=== PATIENT | male | born 1940 ===

== ENCOUNTER 2016-09-05 13:59 | Observation (INO) | payer MEDICARE ==
[2016-09-05 13:59] VITALS: BMI 33.0
[2016-09-05] MEDS ORDERED: Albuterol 0.083% Inhal Sol (2.5 mg/3 mL) UD IH STA (14:44)
--- NOTE | 2016-09-05 15:04 | RAD ---
PROCEDURE: CHEST RADIOGRAPH, 1 VIEW HISTORY: Shortness of breath COMPARISON: CT thorax from 08/30/2015 and plain radiographs from 01/07/2016 FINDINGS: LUNGS: There is right basilar atelectasis. There is stable appearance of masslike opacity in the left lower lobe. PLEURA: No pneumothorax or pleural fluid seen. CARDIOVASCULAR: The heart is normal in size. Atherosclerotic aortic arch calcifications are present. . OSSEOUS STRUCTURES: No significant abnormalities. VISUALIZED UPPER ABDOMEN: Normal. OTHER FINDINGS: None. IMPRESSION: Stable appearance of masslike opacity in the left lower lobe identified as soft tissue masses on the CT scan from August 2015. No acute findings.
[2016-09-05] MEDS ORDERED: Albuterol-Ipratrop 3 mg / 0.5 (3 ml) UD ONE (15:07)
[2016-09-05 15:22] LABS: BASO % 0.3 % (0.0-2.0); EOS # 0.5 K/uL (0.0-0.7); EOS % 11.2 % (0.0-4.0); HEMATOCRIT 37.7 % (35.0-51.0); LYMPH # 1.8 K/uL (1.0-4.3); MEAN CELL VOLUME 97.8 fL (80.0-94.0); MEAN CORPUSCULAR HEMOGLOBIN 32.2 pg (27.0-31.0); MEAN CORPUSCULAR HGB CONC 32.9 g/dL (33.0-37.0); MEAN PLATELET VOLUME 7.8 fL (7.2-11.7); MONO # 0.3 K/uL (0.0-0.8); MONO % 6.4 % (0.0-10.0); NRBC % 0.1 % (0.0-2.0); RED CELL DISTRIBUTION WIDTH 17.2 % (11.5-14.5); WHITE BLOOD COUNT 4.7 K/uL (4.8-10.8)
[2016-09-05 15:31] LABS: INR 1.1
[2016-09-05 15:32] LABS: CHLORIDE 106 mmol/L (98-107); POTASSIUM 3.8 mmol/L (3.6-5.2); SODIUM 139 mmol/L (132-148)
[2016-09-05 15:34] LABS: AST/SGOT 35 U/L (17-59); BILIRUBIN,TOTAL 0.9 mg/dL (0.2-1.3); CARBON DIOXIDE 25 mmol/L (22-30); GFR AFRICAN-AMERICAN 60
[2016-09-05 15:35] LABS: ALB/GLOB RATIO 1.2 (1.0-2.1); ALKALINE PHOSPHATASE 98 U/L (38-126); ALT/SGPT 27 U/L (21-72); BLOOD UREA NITROGEN 17 mg/dL (9-20); CALCIUM 8.3 mg/dl (8.6-10.4); GLUCOSE,RANDOM 92 mg/dL (75-110); TOTAL PROTEIN 6.5 g/dL (6.3-8.3)
--- NOTE | 2016-09-05 15:48 | C.PDOC ---
History Of Present Illness Patient is a 75 y/o male, whose past medical history includes renal and lung CA (left side) that presents to the ED for evaluation of cough, congestion, fever, and shortness of breath that developed 3 days ago. Patient was evaluated by PMD , Dr. Fajardo, 3 days ago and was diagnosed with bronchitis. Patient states that his fever improved but shortness of breath still persists which prompted ED visit. Patient admits to left sided chest pain. Otherwise, denies any lightheadedness, headache, dizziness, n/v/d, or any other associated symptoms at this time. Time Seen by Provider: 09/05/16 14:17 Chief Complaint (Nursing): Shortness Of Breath History Per: Patient History/Exam Limitations: no limitations Onset/Duration Of Symptoms: Days (4) Current Symptoms Are (Timing): Still Present Quality: "Pain" Associated Symptoms: Fever, Chest Pain. denies: Sweating, Bloody Cough, Heart Racing, Leg/Calf Pain, Ankle/Leg Swelling, Dizziness, Light-headedness, Anxiety , Tingling In Hands Or Face, Musle Spasms In Hands Or Feet Reports Recently: Treated By A Physician Recent travel outside of the [place]: No Additional History Per: Patient Past Medical History Reviewed: Historical Data, Nursing Documentation, Vital Signs Vital Signs: Last Vital Signs Temp 97.5 F L 09/05/16 14:07 Pulse 74 09/05/16 14:07 Resp 20 09/05/16 15:00 BP 145/85 09/05/16 14:07 Pulse Ox 98 09/05/16 17:18 - Medical History PMH: Arthritis (Bilateral knees), Diabetes, HTN, Hypercholesterolemia, Pneumonia , Chronic Kidney Disease Surgical History: Coronary Stent (2008), Endoscopy, Hernia Repair (umbilical) Family History: States: Unknown Family Hx - Social History Hx Tobacco Use: Yes (Former smoker 2-3 cigaretes per day, quit 13 years ago) Hx Alcohol Use: No Hx Substance Use: No - Immunization History Hx Tetanus Toxoid Vaccination: No Hx Influenza Vaccination: No Hx Pneumococcal Vaccination: No Review Of Systems Except As Marked, All Systems Reviewed And Found Negative. Constitutional: Positive for: Fever. Negative for: Sweats ENT: Positive for: Nose Congestion. Negative for: Nose Discharge, Throat Pain Cardiovascular: Positive for: Chest Pain. Negative for: Palpitations, Light Headedness Respiratory: Positive for: Cough, Shortness of Breath. Negative for: Hemoptysis , Sputum, Wheezing Gastrointestinal: Negative for: Nausea, Vomiting, Abdominal Pain, Diarrhea Skin: Negative for: Rash Neurological: Negative for: Weakness, Numbness, Headache, Dizziness Physical Exam - Physical Exam Appears: Non-toxic, No Acute Distress Skin: Normal Color, Warm, Dry Head: Atraumatic, Normacephalic Eye(s): bilateral: Normal Inspection, EOMI Ear(s): Bilateral: Normal Nose: Normal Oral Mucosa: Moist Throat: Normal, No Erythema, No Exudate, No Drooling Neck: Normal ROM, Supple Chest: Symmetrical, No Tenderness Cardiovascular: Rhythm Regular Respiratory: No Accessory Muscle Use, No Rales, Rhonchi (left side), No Wheezing Gastrointestinal/Abdominal: Soft, No Tenderness Extremity: Normal ROM Neurological/Psych: Oriented x3, Normal Speech ED Course And Treatment - Laboratory Results Result Diagrams: 09/05/16 15:16 09/05/16 15:16 ECG: Interpreted By Me, Viewed By Me ECG Rhythm: Sinus Rhythm ECG Interpretation: No Acute Changes Rate From EC (bpm) O2 Sat by Pulse Oximetry: 98 (on RA) Pulse Ox Interpretation: Normal - Other Rad CXR X-Ray: Viewed By Me, Read By Radiologist Interpretation: FINDINGS: LUNGS: There is right basilar atelectasis. There is stable appearance of masslike opacity in the left lower lobe. PLEURA: No pneumothorax or pleural fluid seen. CARDIOVASCULAR: The heart is normal in size. Atherosclerotic aortic arch calcifications are present. . OSSEOUS STRUCTURES: No significant abnormalities. VISUALIZED UPPER ABDOMEN: Normal. OTHER FINDINGS: None. IMPRESSION: Stable appearance of masslike opacity in the left lower lobe identified as soft tissue masses on the CT scan from August 2015. No acute findings. Progress Note: CXR, EKG, labs ordered and reviewed. Patient was treated with Albuterol in the ER. On re-exam, patient is resting comfortably with no wheezing , or retractions. Oxygen saturation remains stable. Patient is alert and oriented x 3. Case discussed with Dr. Aggarwal who agrees with plan and admission. Spoke with Dr. Fajardo on phone who agrees upon admission. Additionally , Dr. Fajardo requested to cancel CTA, and states will evaluate patient tomorrow. Pulse ox: 98% . No respiratory distress. Disposition - Disposition Disposition: HOSPITALIZED Disposition Time: 17:04 Condition: STABLE - Clinical Impression Clinical Impression: Chest pain, SOB (shortness of breath) - PA / TREE TRIMMING LINE TECHNICIAN / Resident Statement MD/DO has reviewed & agrees with the documentation as recorded. - Scribe Statement The provider has reviewed the documentation as recorded by the Scribe Estee Berry All medical record entries made by the Prasadibalexey were at my direction and personally dictated by me. I have reviewed the chart and agree that the record accurately reflects my personal performance of the history, physical exam, medical decision making, and the department course for this patient. I have also personally directed, reviewed, and agree with the discharge instructions and disposition.
[2016-09-05] MEDS ORDERED: Moxifloxacin IV 400mg/250ml NS 400 MG/250 ML BAG IV ONE (16:51)
[2016-09-05] MEDS ORDERED: Moxifloxacin IV 400mg/250ml NS 400 MG/250 ML BAG IVPB ONE (17:12)
[2016-09-05 17:21] LABS: RBC URINE 1 /hpf (0-3); URINE BILIRUBIN NEGATIVE (NEGATIVE); URINE BLOOD NEGATIVE (NEGATIVE); URINE COLOR Yellow (YELLOW); URINE GLUCOSE (UA) NORMAL (Normal); URINE KETONE NEGATIVE (NEGATIVE); URINE LEUKOCYTE ESTERASE NEG Leu/uL (Negative); URINE PROTEIN 2+ mg/dL (NEGATIVE); WBC URINE < 1 /hpf (0-5)
[2016-09-05] MEDS: (Novolin R) Insulin Human Regular 100 units/ml vial SC SCH (22:03)
[2016-09-06] MEDS: guaiFENesin DM 200 mg-20 mg/10 ml UD PO PRN ×2 (01:13→09:38)
[2016-09-06] MEDS: (Novolin R) Insulin Human Regular 100 units/ml vial SC SCH ×4 (07:45→22:14)
[2016-09-06 08:38] LABS: CHLORIDE 101 mmol/L (98-107); POTASSIUM 3.7 mmol/L (3.6-5.2); SODIUM 136 mmol/L (132-148)
[2016-09-06 08:39] LABS: HEMATOCRIT 37.7 % (35.0-51.0); MEAN CELL VOLUME 97.8 fL (80.0-94.0); MEAN CORPUSCULAR HEMOGLOBIN 32.2 pg (27.0-31.0); MEAN PLATELET VOLUME 8.5 fL (7.2-11.7); RED CELL DISTRIBUTION WIDTH 17.2 % (11.5-14.5); WHITE BLOOD COUNT 4.8 K/uL (4.8-10.8)
[2016-09-06 08:41] LABS: ALB/GLOB RATIO 1.2 (1.0-2.1); ALKALINE PHOSPHATASE 90 U/L (38-126); ALT/SGPT 27 U/L (21-72); AST/SGOT 23 U/L (17-59); BILIRUBIN,TOTAL 0.9 mg/dL (0.2-1.3); BLOOD UREA NITROGEN 18 mg/dL (9-20); CARBON DIOXIDE 25 mmol/L (22-30); GFR AFRICAN-AMERICAN > 60; GLUCOSE,RANDOM 112 mg/dL (75-110); TOTAL PROTEIN 6.2 g/dL (6.3-8.3)
[2016-09-06 08:42] LABS: CALCIUM 8.1 mg/dl (8.6-10.4)
--- NOTE | 2016-09-06 09:21 | RAD ---
PROCEDURE: CHEST RADIOGRAPH, 1 VIEW HISTORY: SHORTNESS OF BREATH/CHEST PAIN COMPARISON: 09/05/2016 FINDINGS: LUNGS: Persistent mass like prominent opacity within the left mid to lower lung zone. Venous congestion. PLEURA: As above. CARDIOVASCULAR: Cardiomegaly. Tortuous aorta. OSSEOUS STRUCTURES: Degenerative changes in the spine and shoulders with calcific tendinopathy of the left proximal humerus. VISUALIZED UPPER ABDOMEN: Normal. OTHER FINDINGS: None. IMPRESSION: Persistent large lobulated mass like opacity in the left mid to lower lung zone. Cardiomegaly with tortuous ectatic aorta.
[2016-09-06] MEDS: Pantoprazole 40 mg EC Tab PO SCH (09:37)
[2016-09-06] MEDS: Enoxaparin 30 mg Syringe SC SCH ×2 (09:38→22:13)
[2016-09-06 15:36] VITALS: RESP 20
[2016-09-06] MEDS: Moxifloxacin IV 400mg/250ml NS 400 MG/250 ML BAG IVPB SCH (16:19)
--- NOTE | 2016-09-06 21:44 | CP.PCM.CON ---
History of Present Illness - History of Present Illness History of Present Illness: Covering Dr. 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 The patient reports to sudden shortness of breath and chest pain. He was seen by his PMD who told him to come to the hospital. He notes to feeling better and reports the shortness of breath and chest pain and resolving. He denies fever and chills. He notes he is due for a repeat CT scan at [facility] in 2 weeks and has an oncology f/u following his imaging. Past medical history: HTN, DM, HL, renal cell carcinoma Past surgical history: nephrectomy Family history: Denies hematologic and oncologic problems Social history: Former tobacco abuse, denies alcohol and illicit drug use. Allergies: Penicillin Review of systems: All remaining review of systems including HEENT, cardiovascular, respiratory, gastrointestinal, genitourinary, musculoskeletal, dermatologic, neurologic, and psychiatric are negative unless mentioned in the HPI. Past Patient History - Past Medical History & Family History Past Medical History?: Yes - Past Social History Smoking Status: Former Smoker - CARDIAC Hx Hypercholesterolemia: Yes Hx Hypertension: Yes - PULMONARY Hx Pneumonia: Yes - NEUROLOGICAL Hx Neurological Disorder: No - HEENT Hx HEENT Problems: No - RENAL Hx Chronic Kidney Disease: Yes - ENDOCRINE/METABOLIC Hx Diabetes Mellitus Type 1: Yes Hx Diabetes Mellitus Type 2: Yes - HEMATOLOGICAL/ONCOLOGICAL Hx Blood Disorders: Yes Hx Cancer: Yes (LEFT KIDNEY CANCER, LYMPHNODE INVOLVED) - INTEGUMENTARY Hx Dermatological Problems: No - MUSCULOSKELETAL/RHEUMATOLOGICAL Hx Arthritis: Yes (Bilateral knees) - GASTROINTESTINAL Hx Gastrointestinal Disorders: Yes (VOMITING) - GENITOURINARY/GYNECOLOGICAL Hx Genitourinary Disorders: No Other/Comment: LEFT NEPHRECTOMY/CA - PSYCHIATRIC Hx Substance Use: No - SURGICAL HISTORY Hx Coronary Stent: Yes (2007) - ANESTHESIA Hx Anesthesia: Yes Hx Anesthesia Reactions: No Hx Malignant Hyperthermia: No Has any member of the family had a problem w/ anesthesia?: No Meds Allergies/Adverse Reactions: Allergies Allergy/AdvReac Type Severity Reaction Status Date / Time Penicillins Allergy Severe RASH Verified 09/05/16 14:09 - Medications Medications: Current Medications Amlodipine Besylate (Norvasc) 10 mg PO DAILY [facility] Last Admin: 09/06/16 09:38 Dose: 10 mg Enoxaparin Sodium (Lovenox) 30 mg SC Q12 [facility] Last Admin: 09/06/16 09:38 Dose: 30 mg Guaifenesin/Dextromethorphan (Robitussin Dm) 10 ml PO Q4H PRN PRN Reason: Cough and congestion Last Admin: 09/06/16 09:38 Dose: 10 ml Hydrochlorothiazide (Hydrodiuril) 25 mg PO DAILY [facility] Last Admin: 09/06/16 09:38 Dose: 25 mg Moxifloxacin HCl (Avelox Iv 400mg/250ml Ns) 400 mg in 250 mls @ 167 mls/hr IVPB Q24H [facility] Last Admin: 09/06/16 16:19 Dose: 167 mls/hr Insulin Human Regular (Novolin R) 0 unit SC ACHS [facility] PRN Reason: Protocol Last Admin: 09/06/16 16:18 Dose: Not Given Losartan Potassium (Cozaar) 100 mg PO DAILY [facility] Last Admin: 09/06/16 09:37 Dose: 100 mg Metformin HCl (Glucophage) 500 mg PO DAILY [facility] Last Admin: 09/06/16 09:38 Dose: 500 mg Ondansetron HCl (Zofran Inj) 4 mg IVP Q6H PRN PRN Reason: Nausea/Vomiting Pantoprazole Sodium (Protonix Ec Tab) 40 mg PO DAILY [facility] Last Admin: 09/06/16 09:37 Dose: 40 mg Rosuvastatin Calcium (Crestor) 20 mg PO HS [facility] Last Admin: 09/05/16 22:05 Dose: 20 mg Physical Exam - Head Exam Head Exam: ATRAUMATIC - Eye Exam Eye Exam: Normal appearance - ENT Exam ENT Exam: Mucous Membranes Dry - Respiratory Exam Respiratory Exam: NORMAL BREATHING PATTERN - Cardiovascular Exam Cardiovascular Exam: +S1, +S2 - GI/Abdominal Exam GI & Abdominal Exam: Normal Bowel Sounds - Extremities Exam Extremities exam: Positive for: normal inspection - Neurological Exam Neurological exam: Oriented x3 - Psychiatric Exam Psychiatric exam: Normal Affect, Normal Mood - Skin Skin Exam: Warm Results - Vital Signs Recent Vital Signs: Last Vital Signs Temp 97.7 F 09/06/16 15:35 Pulse 69 09/06/16 15:35 Resp 20 09/06/16 15:35 BP 121/78 09/06/16 15:35 Pulse Ox 96 09/06/16 15:35 - Labs Result Diagrams: 09/06/16 07:27 09/06/16 07:27 Labs: Laboratory Results - last 24 hr 09/06/16 09/06/16 09/06/16 06:39 07:27 07:27 WBC 4.8 RBC 3.85 L Hgb 12.4 Hct 37.7 MCV 97.8 H MCH 32.2 H MCHC 33.0 RDW 17.2 H Plt Count 176 MPV 8.5 Sodium 136 Potassium 3.7 Chloride 101 Carbon Dioxide 25 Anion Gap 14 BUN 18 Creatinine 1.1 Est GFR ( Amer) > 60 Est GFR (Non-Af Amer) > 60 POC Glucose (mg/dL) 110 Random Glucose 112 H Calcium 8.1 L Total Bilirubin 0.9 AST 23 ALT 27 Alkaline Phosphatase 90 Total Protein 6.2 L Albumin 3.4 L Globulin 2.8 Albumin/Globulin Ratio 1.2 09/06/16 09/06/16 09/06/16 12:19 16:17 21:19 WBC RBC Hgb Hct MCV MCH MCHC RDW Plt Count MPV Sodium Potassium Chloride Carbon Dioxide Anion Gap BUN Creatinine Est GFR ( Amer) Est GFR (Non-Af Amer) POC Glucose (mg/dL) 86 132 H 160 H Random Glucose Calcium Total Bilirubin AST ALT Alkaline Phosphatase Total Protein Albumin Globulin Albumin/Globulin Ratio Assessment & Plan (1) Renal cell carcinoma Assessment and Plan: lung metastasis by biopsy in 2015 on sunitinib under the care of Dr. Strickland at [facility] outpatient imaging and f/u with primary oncologist. Status: Acute (2) Anemia Assessment and Plan: mild likely related to chemotherapy Thank you for this interesting consult. Status: Acute
--- NOTE | 2016-09-06 21:53 | CP.PCM.HP ---
History of Present Illness - History of Present Illness History of Present Illness: 75 years old male with Past Medical History significant for HTN, Type II DM, Hyperlipidemia, Renal Cancer, Nephrectomy and Lung mestastasis. Patient was in his usual state of health until he complained of sudden onset of chest pain and shortness of breath. Patient denies headache, wheezing, palpitations, nausea, vomiting, abdominal pain, diarrhea and urinary symptoms. Present on Admission - Present on Admission Any Indicators Present on Admission: No Review of Systems - Cardiovascular Cardiovascular: Chest Pain - Respiratory Respiratory: Excessive Mucous Production Past Patient History - Past Medical History & Family History Past Medical History?: Yes - Past Social History Smoking Status: Former Smoker - CARDIAC Hx Hypercholesterolemia: Yes Hx Hypertension: Yes - PULMONARY Hx Pneumonia: Yes - NEUROLOGICAL Hx Neurological Disorder: No - HEENT Hx HEENT Problems: No - RENAL Hx Chronic Kidney Disease: Yes - ENDOCRINE/METABOLIC Hx Diabetes Mellitus Type 1: Yes Hx Diabetes Mellitus Type 2: Yes - HEMATOLOGICAL/ONCOLOGICAL Hx Blood Disorders: Yes Hx Cancer: Yes (LEFT KIDNEY CANCER, LYMPHNODE INVOLVED) - INTEGUMENTARY Hx Dermatological Problems: No - MUSCULOSKELETAL/RHEUMATOLOGICAL Hx Arthritis: Yes (Bilateral knees) - GASTROINTESTINAL Hx Gastrointestinal Disorders: Yes (VOMITING) - GENITOURINARY/GYNECOLOGICAL Hx Genitourinary Disorders: No Other/Comment: LEFT NEPHRECTOMY/CA - PSYCHIATRIC Hx Substance Use: No - SURGICAL HISTORY Hx Coronary Stent: Yes (2007) - ANESTHESIA Hx Anesthesia: Yes Hx Anesthesia Reactions: No Hx Malignant Hyperthermia: No Has any member of the family had a problem w/ anesthesia?: No Meds Allergies/Adverse Reactions: Allergies Allergy/AdvReac Type Severity Reaction Status Date / Time Penicillins Allergy Severe RASH Verified 09/05/16 14:09 Physical Exam - Constitutional Appears: Well, Non-toxic, No Acute Distress - Head Exam Head Exam: ATRAUMATIC, NORMAL INSPECTION, NORMOCEPHALIC - Eye Exam Eye Exam: EOMI, Normal appearance, PERRL - ENT Exam ENT Exam: Mucous Membranes Moist, Normal Exam - Neck Exam Neck exam: Positive for: Full Rom, Normal Inspection - Respiratory Exam Respiratory Exam: Clear to Auscultation Bilateral, NORMAL BREATHING PATTERN - Cardiovascular Exam Cardiovascular Exam: REGULAR RHYTHM, +S1, +S2 - GI/Abdominal Exam GI & Abdominal Exam: Normal Bowel Sounds, Soft - Extremities Exam Extremities exam: Positive for: full ROM, normal inspection - Back Exam Back exam: FULL ROM, NORMAL INSPECTION - Neurological Exam Neurological exam: Alert, CN II-XII Intact, Normal Gait, Oriented x3, Reflexes Normal - Psychiatric Exam Psychiatric exam: Normal Affect, Normal Mood - Skin Skin Exam: Dry, Intact, Normal Color Results - Vital Signs Recent Vital Signs: Last Vital Signs Temp 97.7 F 09/06/16 15:35 Pulse 69 09/06/16 15:35 Resp 20 09/06/16 15:35 BP 121/78 09/06/16 15:35 Pulse Ox 96 09/06/16 15:35 - Labs Result Diagrams: 09/06/16 07:27 09/06/16 07:27 Labs: Laboratory Results - last 24 hr 09/06/16 09/06/16 09/06/16 06:39 07:27 07:27 WBC 4.8 RBC 3.85 L Hgb 12.4 Hct 37.7 MCV 97.8 H MCH 32.2 H MCHC 33.0 RDW 17.2 H Plt Count 176 MPV 8.5 Sodium 136 Potassium 3.7 Chloride 101 Carbon Dioxide 25 Anion Gap 14 BUN 18 Creatinine 1.1 Est GFR ( Amer) > 60 Est GFR (Non-Af Amer) > 60 POC Glucose (mg/dL) 110 Random Glucose 112 H Calcium 8.1 L Total Bilirubin 0.9 AST 23 ALT 27 Alkaline Phosphatase 90 Total Protein 6.2 L Albumin 3.4 L Globulin 2.8 Albumin/Globulin Ratio 1.2 09/06/16 09/06/16 09/06/16 12:19 16:17 21:19 WBC RBC Hgb Hct MCV MCH MCHC RDW Plt Count MPV Sodium Potassium Chloride Carbon Dioxide Anion Gap BUN Creatinine Est GFR ( Amer) Est GFR (Non-Af Amer) POC Glucose (mg/dL) 86 132 H 160 H Random Glucose Calcium Total Bilirubin AST ALT Alkaline Phosphatase Total Protein Albumin Globulin Albumin/Globulin Ratio Assessment & Plan (1) Chest pain Assessment and Plan: Chest Pain. Expectoration. H/O Lung metastasis. H/O Renal Cancer. H/O Nephrectomy. Immunocompromised State. Abnormal CXR. R/O Pneumonia. Blood Cultures. Repeat CXR. Levaquin. 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 Status: Acute (3) Diabetes Assessment and Plan: Continue same treatment. Accucheck with Insulin coverage. Status: Acute (4) Hypertension Assessment and Plan: Continue same treatment. Status: Acute (5) DVT prophylaxis Assessment and Plan: Lovenox 30 mg subc bid. Status: Acute
[2016-09-07] MEDS: (Novolin R) Insulin Human Regular 100 units/ml vial SC SCH ×3 (07:52→17:07)
--- NOTE | 2016-09-07 07:55 | CARD ---
APPROVED REPORT EKG Measurement Heart [id number] NH 210P1 [id number] <Conclusion> Sinus rhythm with 1st degree AV block Nonspecific ST and T wave abnormality Abnormal ECG
[2016-09-07] MEDS: Pantoprazole 40 mg EC Tab PO SCH (09:42)
[2016-09-07] MEDS: Enoxaparin 30 mg Syringe SC SCH (09:44)
[2016-09-07] MEDS: guaiFENesin DM 200 mg-20 mg/10 ml UD PO PRN (11:29)
[2016-09-07 16:00] VITALS: BP 114/76; PULSE 76; TEMP 98.1; O2SAT 95
[2016-09-07] MEDS: Moxifloxacin IV 400mg/250ml NS 400 MG/250 ML BAG IVPB SCH (16:56)
--- NOTE | 2016-09-07 19:27 | CP.PCM.DIS ---
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 Status: Acute (2) Chest pain Status: Resolved Priority: High (3) Diabetes Status: Chronic (4) Hypertension Status: Chronic (5) DVT prophylaxis Status: Suspected (6) Pneumonia Status: Acute Priority: High Comment: Levaquin 500 mg PO x 7 days (7) Immunocompromised state Status: Chronic Priority: High Hospital Course - Lab Results Lab Results: Micro Results 09/05/16 17:09 Blood-Venous Blood Culture - Preliminary NO GROWTH AFTER 24 HOURS Most Recent Lab Values WBC 4.8 K/uL (4.8-10.8) 09/06/16 07:27 RBC 3.85 Mil/uL (4.40-5.90) L 09/06/16 07:27 Hgb 12.4 g/dL (12.0-18.0) 09/06/16 07:27 Hct 37.7 % (35.0-51.0) 09/06/16 07:27 MCV 97.8 fL (80.0-94.0) H 09/06/16 07:27 MCH 32.2 pg (27.0-31.0) H 09/06/16 07:27 MCHC 33.0 g/dL (33.0-37.0) 09/06/16 07:27 RDW 17.2 % (11.5-14.5) H 09/06/16 07:27 Plt Count 176 K/uL (130-400) 09/06/16 07:27 MPV 8.5 fL (7.2-11.7) 09/06/16 07:27 Neut % (Auto) 43.1 % (50.0-75.0) L 09/05/16 15:16 Lymph % (Auto) 39.0 % (20.0-40.0) 09/05/16 15:16 Trinity % (Auto) 6.4 % (0.0-10.0) 09/05/16 15:16 Eos % (Auto) 11.2 % (0.0-4.0) H 09/05/16 15:16 Baso % (Auto) 0.3 % (0.0-2.0) 09/05/16 15:16 Neut # 2.0 K/uL (1.8-7.0) 09/05/16 15:16 Lymph # 1.8 K/uL (1.0-4.3) 09/05/16 15:16 Trinity # 0.3 K/uL (0.0-0.8) 09/05/16 15:16 Eos # 0.5 K/uL (0.0-0.7) 09/05/16 15:16 Baso # 0.0 K/uL (0.0-0.2) 09/05/16 15:16 PT 12.4 SECONDS (9.7-12.2) H 09/05/16 15:16 INR 1.1 09/05/16 15:16 APTT 29 SECONDS (21-34) 09/05/16 15:16 Sodium 136 mmol/L (132-148) 09/06/16 07:27 Potassium 3.7 mmol/L (3.6-5.2) 09/06/16 07:27 Chloride 101 mmol/L (98-107) 09/06/16 07:27 Carbon Dioxide 25 mmol/L (22-30) 09/06/16 07:27 Anion Gap 14 (10-20) 09/06/16 07:27 BUN 18 mg/dL (9-20) 09/06/16 07:27 Creatinine 1.1 MG/DL (0.8-1.5) 09/06/16 07:27 Est GFR ( Amer) > 60 09/06/16 07:27 Est GFR (Non-Af Amer) > 60 09/06/16 07:27 POC Glucose (mg/dL) 144 mg/dL (65-110) H 09/07/16 16:41 Random Glucose 112 mg/dL (75-110) H 09/06/16 07:27 Calcium 8.1 mg/dl (8.6-10.4) L 09/06/16 07:27 Total Bilirubin 0.9 mg/dL (0.2-1.3) 09/06/16 07:27 AST 23 U/L (17-59) 09/06/16 07:27 ALT 27 U/L (21-72) 09/06/16 07:27 Alkaline Phosphatase 90 U/L (38-126) 09/06/16 07:27 Total Creatine Kinase 90 U/L (55-170) 09/05/16 15:16 CK-MB (Mass) 2.26 ng/mL (0.0-3.38) 09/05/16 15:16 Troponin I < 0.0120 ng/mL (0.00-0.120) 09/05/16 15:16 NT-Pro-B Natriuret Pep 90.0 pg/mL (0-900) 09/05/16 15:16 Total Protein 6.2 g/dL (6.3-8.3) L 09/06/16 07:27 Albumin 3.4 g/dL (3.5-5.0) L 09/06/16 07:27 Globulin 2.8 gm/dL (2.2-3.9) 09/06/16 07:27 Albumin/Globulin Ratio 1.2 (1.0-2.1) 09/06/16 07:27 Urine Color Yellow (YELLOW) 09/05/16 17:01 Urine Clarity Clear (Clear) 09/05/16 17:01 Urine pH 6.0 (5.0-8.0) 09/05/16 17:01 Ur Specific Ledbetter 1.023 (1.003-1.030) 09/05/16 17:01 Urine Protein 2+ mg/dL (NEGATIVE) H 09/05/16 17:01 Urine Glucose (UA) Normal mg/dL (Normal) 09/05/16 17:01 Urine Ketones Negative mg/dL (NEGATIVE) 09/05/16 17:01 Urine Blood Negative (NEGATIVE) 09/05/16 17:01 Urine Nitrate Negative (NEGATIVE) 09/05/16 17:01 Urine Bilirubin Negative (NEGATIVE) 09/05/16 17:01 Urine Urobilinogen 4.0 mg/dL (0.2-1.0) 09/05/16 17:01 Ur Leukocyte Esterase Neg Ryan/uL (Negative) 09/05/16 17:01 Urine WBC (Auto) < 1 /hpf (0-5) 09/05/16 17:01 Urine RBC (Auto) 1 /hpf (0-3) 09/05/16 17:01 - Hospital Course Hospital Course: 75 years old male with PMHx significant for Renal Carcinoma, Nephrectomy, Lung metastasis, Immunocompromised state, Type II DM, HTN and Hyperlipidemia. Patient admitted for Chest pain and shortness of breath. Hematology consult ordered. Patient responded very well to Avelox IV. Patient's condition improved and he was discharged home on Levaquin PO. Discharge Exam - Head Exam Head Exam: ATRAUMATIC - Eye Exam Eye Exam: EOMI, Normal appearance, PERRL - Respiratory Exam Respiratory Exam: Clear to PA & Lateral, NORMAL BREATHING PATTERN - Cardiovascular Exam Cardiovascular Exam: REGULAR RHYTHM, +S1, +S2 - GI/Abdominal Exam GI & Abdominal Exam: Normal Bowel Sounds, Soft - Extremities Exam Extremities exam: full ROM, normal inspection - Back Exam Back exam: FULL ROM - Neurological Exam Neurological exam: Alert, CN II-XII Intact, Oriented x3, Reflexes Normal - Psychiatric Exam Psychiatric exam: Normal Affect, Normal Mood - Skin Skin Exam: Intact Discharge Plan - Follow Up Plan Condition: STABLE Disposition: HOME/ ROUTINE Patient education suggested?: No
[2016-09-07] MEDS ORDERED: INSULIN DEGLUDEC 30 UNIT SUBCUT SCH (22:00)
[2016-09-08] MEDS ORDERED: Pneumococcal 23-Valent Vaccine IM ONE (10:00)
[2016-09-08] MEDS ORDERED: VALSARTAN PO SCH (10:00)
[2016-09-08] MEDS ORDERED: Pantoprazole 40 mg EC Tab PO SCH (10:00)
[2016-09-08] MEDS ORDERED: SUNITINIB PO SCH (10:00)
[2016-09-08] MEDS ORDERED: HCTHIAZID PO SCH (10:00)
[2016-09-08] MEDS ORDERED: AMLODIPINE PO SCH (10:00)
== END 2016-09-07 20:40 | disposition home or self-care (01) ==
LOC: C.ER 13:59 → C.9E 16:51 → C.6T 20:06
PROVIDERS: ADMIT Internal Medicine; ATTEND Internal Medicine
DX: J18.9 Pneumonia, unspecified organism (principal); R06.02 Shortness of breath; C78.02 Secondary malignant neoplasm of left lung; E10.22 Type 1 diabetes mellitus with diabetic chronic kidney disease; E78.5 Hyperlipidemia, unspecified; I12.9 Hypertensive chronic kidney disease with stage 1 through stage 4 chronic kidney disease, or unspecified chronic kidney disease; N18.9 Chronic kidney disease, unspecified; M17.0 Bilateral primary osteoarthritis of knee; D64.81 Anemia due to antineoplastic chemotherapy; T45.1X5A Adverse effect of antineoplastic and immunosuppressive drugs, initial encounter; Z85.528 Personal history of other malignant neoplasm of kidney; Z79.4 Long term (current) use of insulin; Z90.5 Acquired absence of kidney; Z95.5 Presence of coronary angioplasty implant and graft; Z87.891 Personal history of nicotine dependence
CPT/HCPCS: 36415; 71010; 80053; 81001; 82550; 82553; 82948; 83880; 84484; 85025; 85027; 85610; 85730; 87040; 93005; 96360; 97110; 97116; 97162; 99285; G0378; G8978; G8979; J1650; J2280

== ENCOUNTER 2016-11-02 07:07 | Day surgery (SDC) | payer MEDICARE ==
[2016-11-02 07:47] VITALS: BMI 31.6
--- NOTE | 2016-11-02 10:02 | CP.SDSHP ---
Same Day Surgery H & P - History Proposed Procedure: EGD/ COLONSCOPY Pre-Op Diagnosis: SEE NOTES - Previous Medical/Surgical History Cardiac: Hypertension Endocrine/Metabolic: Diabetes, Other Misc: Other Pain: 4.Moderate Pain - Allergies Allergies: Allergies Penicillins Allergy (Severe, Verified 09/05/16 14:09) RASH - Physical Exam General Appearance: N Vital Signs: Vital Signs 11/02/16 08:02 Temperature 98.6 F Pulse Rate 80 Respiratory 16 Rate Blood Pressure 130/66 O2 Sat by Pulse 98 Oximetry Mental Status: Alert & Oriented x3 Neuro: WNL Heart: Other Lungs: WNL GI: WNL - {Optional Preform as Required} Breast: WNL Abdomen: Other Rectal: Other Integument: WNL : Other Ortho: WNL ENT: WNL - Impression Pt. Evaluated Today:Candidate for Anesthesia & Procedure: Yes - Date & Time Time: 10:02 Short Stay Discharge - Short Stay Discharge Admitting Diagnosis/Reason for Visit: DYSPEPSIA / GI BLEEDING Disposition: HOME/ ROUTINE
[2016-11-02] MEDS ORDERED: Etomidate 20 mg/10ml Inj IV ONE (10:04)
[2016-11-02] MEDS ORDERED: Propofol 10 mg/ml Inj (20 ML) ONE (10:04)
[2016-11-02] MEDS ORDERED: Belladonna-Phenobarbital PO ONE (10:45)
[2016-11-02 11:03] VITALS: TEMP 97.5
[2016-11-02 11:14] VITALS: O2SAT 96
[2016-11-02 11:32] VITALS: PULSE 70; RESP 22
[2016-11-02 12:24] VITALS: BP 130/70
== END 2016-11-02 12:15 | disposition home or self-care (01) ==
LOC: C.ENDO 07:07
PROVIDERS: ATTEND Specialist
DX: K31.7 Polyp of stomach and duodenum (principal); K30 Functional dyspepsia; K44.9 Diaphragmatic hernia without obstruction or gangrene; K64.8 Other hemorrhoids; K57.90 Diverticulosis of intestine, part unspecified, without perforation or abscess without bleeding
CPT/HCPCS: 43270; 45380; 82948; 88305; 88342; J2001; J2704; J2930

== ENCOUNTER 2017-03-08 14:54 | Observation (INO) | payer MEDICARE ==
[2017-03-08 14:54] VITALS: BMI 31.6
--- NOTE | 2017-03-08 15:36 | C.PDOC ---
History Of Present Illness 76 y/o male with history of 2 stents placed presents to ED with complaints of left sided chest pain for 1 week with associated sob and dizziness. Patient is speaking in full sentences and describes pain as "pressure". Patient denies fever, chills, cough, nausea, vomiting or any other complaints at this time. Time Seen by Provider: 03/08/17 15:18 Chief Complaint (Nursing): Chest Pain History Per: Patient History/Exam Limitations: no limitations Onset/Duration Of Symptoms: Days Current Symptoms Are (Timing): Still Present Quality: Pressure Past Medical History Reviewed: Historical Data, Nursing Documentation, Vital Signs Vital Signs: Last Vital Signs Temp 98.3 F 03/08/17 15:08 Pulse 68 03/08/17 16:50 Resp 18 03/08/17 16:50 BP 114/54 L 03/08/17 16:50 Pulse Ox 96 03/08/17 18:46 - Medical History PMH: Anemia, Anxiety, Arthritis (Bilateral knees), Depression, Diabetes, HTN, Hypercholesterolemia, Pneumonia, Chronic Kidney Disease Surgical History: Coronary Stent (2007), Endoscopy, Hernia Repair (umbilical) Family History: States: No Known Family Hx - Social History Hx Tobacco Use: Yes (Former smoker 2-3 cigaretes per day, quit 13 years ago) Hx Alcohol Use: No Hx Substance Use: No - Immunization History Hx Tetanus Toxoid Vaccination: No Hx Influenza Vaccination: No Hx Pneumococcal Vaccination: No Review Of Systems Except As Marked, All Systems Reviewed And Found Negative. Cardiovascular: Positive for: Chest Pain Respiratory: Positive for: Shortness of Breath Neurological: Positive for: Dizziness Physical Exam - Physical Exam Appears: Non-toxic, No Acute Distress Skin: Normal Color, Warm, Dry, No Rash Head: Atraumatic, Normacephalic Eye(s): bilateral: Normal Inspection Oral Mucosa: Moist Throat: Normal, No Erythema, No Exudate, No Drooling Neck: Supple Chest: Symmetrical Cardiovascular: Rhythm Regular Respiratory: Normal Breath Sounds, No Accessory Muscle Use, No Rales, No Rhonchi , No Wheezing Gastrointestinal/Abdominal: Soft, No Tenderness, No Guarding, No Rebound Extremity: Normal ROM, Capillary Refill (<2 seconds) Extremity: Bilateral: No Pedal Edema Neurological/Psych: Oriented x3, Normal Speech (Speaking in full sentences) Gait: Steady ED Course And Treatment - Laboratory Results Result Diagrams: 03/08/17 15:40 03/08/17 15:40 ECG: Interpreted By Me, Viewed By Me ECG Rhythm: Sinus Rhythm Interpretation Of ECst degree AV block, Normal interval. Normal access. No ST/T/ wave changes Rate From EC O2 Sat by Pulse Oximetry: 96 Medical Decision Making Medical Decision Making: chest pain patient resting comfortably. discussed with medical refrigeration supervisor and will admit to telemetry consult for Dr. Batista. Disposition Discussed With : Otoniel Hyde Doctor Will See Patient In The: Hospital Counseled Patient/Family Regarding: Studies Performed, Diagnosis - Disposition Disposition: HOSPITALIZED Disposition Time: 17:07 Condition: FAIR - Clinical Impression Clinical Impression: Chest pain - Scribe Statement The provider has reviewed the documentation as recorded by the Scribalexey Kowalski All medical record entries made by the Prasadibalexey were at my direction and personally dictated by me. I have reviewed the chart and agree that the record accurately reflects my personal performance of the history, physical exam, medical decision making, and the department course for this patient. I have also personally directed, reviewed, and agree with the discharge instructions and disposition.
[2017-03-08 15:44] LABS: BASO % 0.6 % (0.0-2.0); EOS # 0.9 K/uL (0.0-0.7); EOS % 16.1 % (0.0-4.0); HEMATOCRIT 33.4 % (35.0-51.0); LYMPH # 1.4 K/uL (1.0-4.3); LYMPH % 26.7 % (20.0-40.0); MEAN CELL VOLUME 99.4 fL (80.0-94.0); MEAN CORPUSCULAR HEMOGLOBIN 33.5 pg (27.0-31.0); MEAN CORPUSCULAR HGB CONC 33.7 g/dL (33.0-37.0); MEAN PLATELET VOLUME 7.5 fL (7.2-11.7); MONO # 0.4 K/uL (0.0-0.8); MONO % 8.1 % (0.0-10.0); NRBC % 0.1 % (0.0-2.0); RED CELL DISTRIBUTION WIDTH 17.2 % (11.5-14.5); WHITE BLOOD COUNT 5.4 K/uL (4.8-10.8)
[2017-03-08 15:56] LABS: ALB/GLOB RATIO 1.4 (1.0-2.1); ALKALINE PHOSPHATASE 80 U/L (38-126); ALT/SGPT 28 U/L (21-72); AST/SGOT 19 U/L (17-59); BILIRUBIN,TOTAL 0.7 mg/dL (0.2-1.3); BLOOD UREA NITROGEN 21 mg/dL (9-20); CALCIUM 8.5 mg/dl (8.6-10.4); CARBON DIOXIDE 24 mmol/L (22-30); CHLORIDE 102 mmol/L (98-107); GFR AFRICAN-AMERICAN > 60; GLUCOSE,RANDOM 159 mg/dL (75-110); POTASSIUM 4.3 mmol/L (3.6-5.2); SODIUM 132 mmol/L (132-148); TOTAL PROTEIN 6.2 g/dL (6.3-8.3)
--- NOTE | 2017-03-08 16:05 | RAD ---
HISTORY: chest pain COMPARISON: 05/09/2016 chest x-ray. CT chest without contrast 08/30/2015 TECHNIQUE: Chest PA and lateral FINDINGS: LUNGS: The left mid lung zone opacity consistent with lobulated masses is renoted. Chest x-ray appearance similar. T chest shows contiguous left rib destruction contiguous left chest wall involvement - findings not appreciated on this less sensitive exam PLEURA: No significant pleural effusion identified. No pneumothorax apparent. CARDIOVASCULAR: Cardiomegaly. Tortuous partly calcified thoracic aorta-similar OSSEOUS STRUCTURES: Thoracic spondylosis left anterior rib destruction -reported on prior CT chest VISUALIZED UPPER ABDOMEN: Normal. OTHER FINDINGS: None. IMPRESSION: Left mid lung zone mass-similar appearing the prior chest x-ray the please note the prior CT chest without contrast study 08/30/2015 No interval chest x-ray changes suggested
[2017-03-08] MEDS ORDERED: Iodixanol 320 MG/ML 100 ML BOTTLE IV ONE (22:33)
[2017-03-08] MEDS: (Novolin R) Insulin Human Regular 100 units/ml vial SC SCH (23:17)
--- NOTE | 2017-03-08 23:47 | CT ---
EXAM: CT Angiography Chest With Intravenous Contrast CLINICAL HISTORY: 76 years old, male; Pain; Chest pain; Type not specified; Additional info: Chest pain, SOB, lung mass TECHNIQUE: Axial computed tomographic angiography images of the chest with intravenous contrast using pulmonary embolism protocol. All CT scans at this facility use one or more dose reduction techniques, viz.: automated exposure control; ma/kV adjustment per patient size (including targeted exams where dose is matched to indication; i.e. head); or iterative reconstruction technique. MIP reconstructed images were created and reviewed. Coronal and sagittal reformatted images were created and reviewed. CONTRAST: 100 mL of VISIPAQUE 320 administered intravenously. COMPARISON: CT - CHEST W/O CONTRAST 2015-08-30 09:39 FINDINGS: Pulmonary arteries: Unremarkable. No pulmonary embolism. Aorta: No acute findings. No thoracic aortic aneurysm. Lungs: The known left lung mass with invasion of the left anterior chest wall and destruction of the left anterior fifth rib is overall little changed in size as compared with 08/30/2015. For reference, this currently measures 8.5 x 5.2 CM on series 3, image 63. In a similar location on the prior study, this measured 8.4 x 5.2 CM. Numerous metastatic lung nodules most notably near bilateral lung bases overall appear increased in size and number as compared with 08/30/2015. This for reference, one of these at the left base measures 15 mm in greatest dimension on series 3, image 91. Pleural space: The lungs are free of significant consolidation, pleural effusion or pneumothorax. Heart: Unremarkable. No cardiomegaly. No significant pericardial effusion. No evidence of RV dysfunction. Thyroid: The thyroid is normal in size and position. Bones/joints: There are moderate degenerative changes present. There is mild diffuse osteopenia. Soft tissues: See above. Lymph nodes: There is left hilar adenopathy. This appears increased as compared with 08/30/2015. There is no axillary adenopathy. No mediastinal adenopathy. Kidneys and ureters: The left kidney is not identified within the scan. Upper abdomen: Scans through the upper abdomen demonstrate no definite acute abnormalities. IMPRESSION: 1. There is left hilar adenopathy. This appears increased as compared with 08/30/2015. 2. The known left lung mass with invasion of the left anterior chest wall and destruction of the left anterior fifth rib is overall little changed in size as compared with 08/30/2015. For reference, this currently measures 8.5 x 5.2 CM on series 3, image 63. In a similar location on the prior study, this measured 8.4 x 5.2 CM. 3. Numerous metastatic lung nodules most notably near bilateral lung bases overall appear increased in size and number as compared with 08/30/2015. This for reference, one of these at the left base measures 15 mm in greatest dimension on series 3, image 91. 4. Additional incidental and/or chronic findings as described.
[2017-03-09 08:23] LABS: BASO % 0.5 % (0.0-2.0); EOS % 17.6 % (0.0-4.0); HEMATOCRIT 34.7 % (35.0-51.0); LYMPH # 1.5 K/uL (1.0-4.3); LYMPH % 27.4 % (20.0-40.0); MEAN CELL VOLUME 99.9 fL (80.0-94.0); MEAN CORPUSCULAR HEMOGLOBIN 34.5 pg (27.0-31.0); MEAN CORPUSCULAR HGB CONC 34.5 g/dL (33.0-37.0); MEAN PLATELET VOLUME 8.2 fL (7.2-11.7); MONO # 0.5 K/uL (0.0-0.8); MONO % 8.1 % (0.0-10.0); NRBC % 0.1 % (0.0-2.0); RED CELL DISTRIBUTION WIDTH 16.9 % (11.5-14.5); WHITE BLOOD COUNT 5.6 K/uL (4.8-10.8)
[2017-03-09] MEDS ORDERED: Aminophylline 25 mg/ml Inj ONE (08:32)
[2017-03-09] MEDS: (Novolin R) Insulin Human Regular 100 units/ml vial SC SCH ×3 (08:45→17:23)
[2017-03-09 08:55] LABS: ALB/GLOB RATIO 1.5 (1.0-2.1); ALKALINE PHOSPHATASE 88 U/L (38-126); ALT/SGPT 25 U/L (21-72); AST/SGOT 24 U/L (17-59); BILIRUBIN,TOTAL 0.7 mg/dL (0.2-1.3); BLOOD UREA NITROGEN 22 mg/dL (9-20); CALCIUM 8.8 mg/dl (8.6-10.4); CARBON DIOXIDE 29 mmol/L (22-30); CHLORIDE 99 mmol/L (98-107); CHOLESTEROL 159 mg/dL (0-199); GFR AFRICAN-AMERICAN > 60; GLUCOSE,RANDOM 133 mg/dL (75-110); POTASSIUM 4.4 mmol/L (3.6-5.2); SODIUM 136 mmol/L (132-148); TOTAL PROTEIN 6.6 g/dL (6.3-8.3)
[2017-03-09 08:56] LABS: IRON 71 ug/dL (49-181)
--- NOTE | 2017-03-09 09:08 | RAD ---
HISTORY: sob, lung mass, r/o pe COMPARISON: No prior. FINDINGS: BOWEL: No evidence of bowel obstruction. Mild retained feces in the ascending colon. No hepatic or splenic enlargement. No masses or abnormal calcifications. No free intraperitoneal air appreciated. BONES: Normal. OTHER FINDINGS: None. IMPRESSION: No active disease.
[2017-03-09 09:16] LABS: THYROID STIMULATING HORMONE 3.14 mIU/L (0.46-4.68)
[2017-03-09 09:51] LABS: FOLATE 13.2 ng/mL
[2017-03-09] MEDS ORDERED: Pantoprazole 40 mg EC Tab PO SCH (10:00)
--- NOTE | 2017-03-09 10:43 | CP.PCM.PN ---
Subjective - Date & Time of Evaluation Date of Evaluation: 03/09/17 Objective - Vital Signs/Intake and Output Vital Signs (last 24 hours): Temp Pulse Resp BP Pulse Ox 97.4 F L 73 20 116/73 97 03/09/17 07:47 03/09/17 07:47 03/09/17 07:47 03/09/17 07:47 03/09/17 07:47 Intake and Output: 03/09/17 03/09/17 06:59 18:59 Intake Total 120 Output Total 120 Balance 0 - Medications Medications: Current Medications Amlodipine Besylate (Norvasc) 10 mg PO DAILY [facility] Aspirin (Aspirin Chewable) 81 mg PO DAILY [facility] Heparin Sodium (Porcine) (Heparin) 5,000 units SC Q8 [facility] Last Admin: 03/09/17 06:06 Dose: 5,000 units Hydrochlorothiazide (Hydrodiuril) 25 mg PO DAILY [facility] Insulin Human Regular (Novolin R) 1 unit SC ACHS [facility] PRN Reason: Protocol Last Admin: 03/08/17 23:17 Dose: Not Given Losartan Potassium (Cozaar) 100 mg PO DAILY [facility] Pantoprazole Sodium (Protonix Ec Tab) 40 mg PO DAILY [facility] Perflutren Lipid Microsphere (Definity) 2 ml IV ONCE ONE Stop: 03/09/17 11:01 - Labs Labs: 03/09/17 08:12 03/09/17 08:12
[2017-03-09] MEDS ORDERED: Perflutren Lipid Microsphere 1.5 ML SUS IV ONE (11:00)
--- NOTE | 2017-03-09 14:21 | HP ---
CHIEF COMPLAINT: Left-sided chest pain, radiating to the back and to the neck over the past 1 month. HISTORY OF PRESENT ILLNESS: Mr. Odom is a 76-year-old male with past medical history of hypertension; hyperlipidemia; diabetes mellitus; history of renal cell CA, status post nephrectomy 15 years ago; CAD, status post stent placement in 2007; endoscopy; hernia repair and found to have left lung metastasis of unknown origin. In 2012, the patient underwent a thoracotomy and VATS procedure. Since then, he was put on chemotherapy medication for the past one and a half years. He has been following up with Dr. Strickland from [place]. He has scheduled appointment tomorrow. His primary care physician is Dr. Fajardo. He came into the ED yesterday with worsening symptoms of left-sided chest pain, radiating to the back and the neck associated with shortness of breath, nausea and dizziness. The pain is stabbing in nature, occurring intermittently over the past 1 month, getting better with aspirin and other pain medications. He denies any headache. He denies any vomiting. Denies any abdominal pain, diarrhea or constipation. Denied any urinary complaints. Denied any leg pains or leg cramps. Denied any other neurologic symptoms. PAST MEDICAL HISTORY: As described, hypertension, hyperlipidemia, diabetes mellitus, anemia, history of renal cell CA, coronary artery disease. PAST SURGICAL HISTORY: Left nephrectomy about 15 years ago, stent placement in 2007, hernia repair and EGD. FAMILY HISTORY: Mother from natural causes. Father in accident. PERSONAL HISTORY: He is , having 4 children. Retired, living with his family. SOCIAL HISTORY: Denies smoking, alcohol or drug abuse. ALLERGIES: HE IS ALLERGIC TO PENICILLIN. MEDICATONS: Include metformin 500 mg p.o. daily, Protonix 40 mg p.o. daily, insulin 30 units subcu at bedtime, aspirin 81 mg daily, amlodipine 10 mg, valsartan 320 mg and hydrochlorothiazide 25 mg daily, Tylenol as needed. REVIEW OF SYSTEMS: As described in history of present illness. All other systems reviewed and were found to be negative. PHYSICAL EXAMINATION: GENERAL: Elderly male, lying in bed, in no acute distress. VITAL SIGNS: Blood pressure 116/73, pulse 73, respirations 20, temperature 97.4 degrees Fahrenheit, O2 sats 97% on room air. HEENT: Pupils equal, round, reacting to light and accommodation. Extraocular muscles intact. No icterus. No pallor. No oral thrush. No pharyngeal congestion. No nasal congestion. NECK: Supple. No JVD. CHEST: Moving equally bilaterally on inspiration. LUNGS: Bilateral vesicular breath sounds. No wheezing. No rhonchi. Left-sided anterior chest wall decreased sensation, crepitations, mild tenderness on deep palpation. CARDIOVASCULAR SYSTEM: S1 and S2 present, regular. ABDOMEN: Soft, nontender. Bowel sounds present. No guarding. No rigidity. No rebound tenderness noted. CENTRAL NERVOUS SYSTEM: Alert, awake, oriented x3. No focal deficits noted. EXTREMITIES: No edema. Palpable peripheral pulses. LABORATORY DATA: Labs done from ED, WBC 5.4, hemoglobin 11.2, hematocrit 33.4, platelets 216. Sodium 132, potassium 4.3, chloride 102, bicarb 24, BUN 21, creatinine 1.2, glucose 139, calcium 8.5. Cardiac enzymes x1 negative. AST 19, ALT 28, alkaline phosphatase 80, lipase 47. Chest x-ray consistent with left mid lung zone mass, similar appearing to the prior chest x-ray from 2016. CT of the chest consistent with left hilar adenopathy, known left lung mass, attenuation of the left anterior chest wall and destruction of the left anterior fifth rib. No PE. Numerous metastatic lung nodules, most notably in the bilateral lung bases. ASSESSMENT: Elderly male with history of hypertension; hyperlipidemia; diabetes mellitus; coronary artery disease, status post stent placement; history of renal cell cancer, status post left nephrectomy 15 years ago; found to have left lung mass of unknown primary, has been on chemotherapy, following up with Dr. Strickland from [place], was started on Sutent for the past one and a half years. Admitted to the hospital with left-sided chest pain, rule out acute coronary syndrome. 1. Left-sided chest pain in a patient with prior history of coronary artery disease and stent placement, rule out acute coronary syndrome, rule out stenosis of the stent. Rule out secondary to involvement of the anterior chest wall resulting in atypical chest pain. 2. History of hypertension. Blood pressure is stable. 3. History of diabetes mellitus. 4. History of coronary artery disease, status post stent placement. 5. History of renal cell cancer, status post left nephrectomy. 6. History of left lung metastasis of unknown primary, status post surgery, on chemotherapy. 7. Anemia. PLAN: The patient is being admitted to cardiac telemetry. We will do serial cardiac enzymes, serial EKGs. We will check echocardiogram. Continue with his home medication, aspirin, amlodipine, valsartan and hydrochlorothiazide. We will obtain Cardiology evaluation with Dr. Batista who has seen this patient on prior admission. We will do Accu-Check before every meals and at bedtime. Continue with his insulin. Hold metformin. We will do iron studies, B12 and folate level. The patient claims that he has been following up with Dr. Strickland for many years from [place], who started him on Sutent for the past one and a half years and he is going to change to nivolumab and the patient has scheduled appointment tomorrow at 09:[address] Strickland for further followup of his left lung mass as the patient has been following up with Dr. Strickland for many years. The patient has scheduled Oncology appointment for 03/10/2017. We will add further recommendation as his clinical course progresses. Otoniel Hyde MD
[2017-03-09 17:12] VITALS: BP 112/70; RESP 18; TEMP 98.3; O2SAT 95
--- NOTE | 2017-03-09 18:08 | CARD ---
APPROVED REPORT Protocol: PHARMACOLOGICAL STRESS Test Type: LEXISCAN Test Indications: CHEST PAIN Medications: LIST SCAN Medical History: CHEST PAIN Target HR: 143 bpm Resting ECG: abnormal Resting Heart Rate: 72 bpm Resting Blood Pressure: 122/60mmHg submaximum (85%): 122 bpm TEST SUMMARY [id number]:200.00..971523/60.7. INFUSIONDOSE 100:300.00.01.367538/60.8. QVIOCSDSK31:470.00.01.074/.12. PROCEDURE Pharmacologic stress testing was performed using 0.4mg per 5ml of regadenoson given intravenously over 7-10 seconds. POST EXERCISE Reason for Termination: Protocol Completed Target HR: No Max HR: 71 bpm 54% of Maximum Predicted HR: 143 bpm Exercise duration: 00:30 min:sec, 0 Stage Exercise capacity: 1.0METs Max Blood Pressure: 122/60mmHg Blood Pressure response to exercise: normal resting BP - appropriate response Heart Rate response to exercise: appropriate Chest Pain: No, none Angina index: 0 Arrhythmia: Yes, ventricular premature beats-isolated ST Change: No, none Deviation: 0 mm INTERPRETATION Stress EKG Conclusion: Nuclear report to follow EXAM: Myocardial Perfusion STRESS/REST Imaging Protocol The imaging protocol used to acquire images was Stress Tc-99m/rest Tc-99m 1 day Rest Spect myocardial perfusion imaging was performed in supine position 45 minutes following the injection of 27.0 mCi of Tc-99 Myoview. Gated Stress Spect was performed 45 minutes after intravenous 13.1 mCi Tc-99 Myoview injection. The images were gated to evaluate regional wall motion and calculate ventricular ejection fraction.Images were reconstructed using backfilter projection method in short horizontal and verticle long axis. Spect slices were generated. RESTING DATA [id number]/min1/3 Pk. Filling Rate1.06EDV/sec LV Time to Pk. Filling Evne490.25msec ESV40.00mlMyocardial Tpiy987.00gLV Time to Pk. Ejection Zwbm716.73msec Pk. Fill Rate2.82EDV/secAv. Heart Rate69.00bpm EF71.00%Pk. Emptying Rate3.56ESV/sec STRESS DATA HBW495.80zmUE2.00L/min ESV40.00mlMyocardial Bzys252.00g Pk. Fill Rate2.52EDV/sec EF69.00%Pk. Emptying Rate3.94ESV/sec 1/3 Pk. Filling Rate1.08EDV/secRegional WT score at stress:0.00 LV Time to Pk. Filling Rate:188.50msecRegional WM score at stress:0.00 LV Time to Pk. Ejection Rate:229.53msecSummed WT score at stress:1.00 Av. Heart Rate68.00bpmSummed WM score at stress:0.00 LV Perf. Quant 17 Seg. SSS0.00 17 Seg. SRS1.00 17 Seg. SDS0.00 Stress Defect Extent (% LAD)0.00Rest Defect Extent (% LAD)0.00Rev. Defect Extent (% LAD)0.00 Stress Defect Extent (% LCX)0.00Rest Defect Extent (% LCX)0.00Rev. Defect Extent (% LCX)0.00 Stress Defect Extent (% RCA)0.00Rest Defect Extent (% RCA)0.00Rev. Defect Extent (% RCA)0.00 Stress Defect Extent (% UMESH)0.00Rest Defect Extent (% UMESH)0.00Rev. Defect Extent (% UMESH)0.00 Other Information Quality:Good IMPRESSION Normal Myocardial Perfusion exercise stress study Left Ventricle LV Function:Left ventricle systolic function is normal. The Ejection Fraction is >55%. Metabolism/Perfusion There are no perfusion/metabolism defects. Conclusion 1. Normal lexiscan nuclear stress test. Normal EF
[2017-03-09 20:27] LABS: RBC URINE < 1 /hpf (0-3); URINE BILIRUBIN NEGATIVE (NEGATIVE); URINE BLOOD NEGATIVE (NEGATIVE); URINE COLOR Yellow (YELLOW); URINE GLUCOSE (UA) NORMAL (Normal); URINE KETONE NEGATIVE (NEGATIVE); URINE LEUKOCYTE ESTERASE NEG Leu/uL (Negative); URINE PROTEIN 1+ mg/dL (NEGATIVE); URINE UROBILINOGEN NORMAL mg/dL (0.2-1.0); WBC URINE < 1 /hpf (0-5)
[2017-03-09] MEDS ORDERED: INSULIN DEGLUDEC 30 UNIT SUBCUT SCH (22:00)
--- NOTE | 2017-03-09 23:15 | CARD ---
APPROVED REPORT EKG Measurement Heart [id number] VT 214P20 [id number] <Conclusion> Sinus rhythm with 1st degree AV block Otherwise normal ECG
[2017-03-09 23:22] VITALS: PULSE 77
--- NOTE | 2017-03-10 10:20 | CARD ---
APPROVED REPORT EXAM: Two-dimensional and M-mode echocardiogram with Doppler, color Doppler with contrast. Other Information Quality : GoodRhythm : INDICATION Dyspnea Chest Pain RISK FACTORS Hypertension Diabetes 2D DIMENSIONS IVSd1.0 (0.7-1.1cm)LVDd4.6 (3.9-5.9cm) PWd1.3 (0.7-1.1cm)LVDs3.9 (2.5-4.0cm) FS (%) 16.1 % M-Mode DIMENSIONS Left Atrium (MM)3.24 (2.5-4.0cm)Aortic Root3.40 (2.2-3.7cm) Aortic Cusp Exc.2.13 (1.5-2.0cm) Aortic Valve AI P 1/2 Omib180eg Mitral Valve MV E Yjnaysrp43.3cm/sMV A Hewzrtns786.4cm/sE/A ratio0.6 TDI E/Lateral E'0.0E/Medial E'0.0 Tricuspid Valve TR Peak Sfjrjccc977pe/sTR Peak Gr.72aqMyJDEF85mwBd LEFT VENTRICLE The left ventricle is normal size. There is borderline to mild asymmetric left ventricular hypertrophy. Left ventricle systolic function is mildly to moderately impaired. Estimated Ejection Fraction is 40-45%. There is normal LV segmental wall motion. Transmitral Doppler flow pattern is abnormal.Grade I-abnormal relaxation pattern. No left ventricle thrombus noted on this study. RIGHT VENTRICLE The right ventricle is normal size. The right ventricular systolic function is normal. ATRIA The left atrium size is normal. The right atrium size is normal. AORTIC VALVE The aortic valve is moderately sclerotic. The aortic valve is probably trileaflet. There is mild to moderate aortic regurgitation. There is no aortic valvular stenosis. MITRAL VALVE Mitral annular calcification is mild to moderate. There is no evidence of mitral valve prolapse. There is no mitral valve stenosis. There is no mitral valve regurgitation noted. TRICUSPID VALVE The tricuspid valve is normal in structure. There is mild tricuspid regurgitation. Right ventricular systolic pressure is estimated at less than 30 mmHg. There is no pulmonary hypertension. There is no tricuspid valve prolapse or vegetation. There is no tricuspid valve stenosis. PULMONIC VALVE The pulmonic valve is not well visualized. There is no pulmonic valvular regurgitation. There is no pulmonic valvular stenosis. GREAT VESSELS The aortic root is normal in size. The IVC is normal in size and collapses >50% with inspiration. PERICARDIAL EFFUSION There is no pericardial effusion. There is no pleural effusion. <Conclusion> There is borderline to mild asymmetric left ventricular hypertrophy. Left ventricle systolic function is mildly to moderately impaired. Estimated Ejection Fraction is 40-45%. Transmitral Doppler flow pattern is abnormal.Grade I-abnormal relaxation pattern. The right ventricle is normal size. The right ventricular systolic function is normal. The left atrium size is normal. The right atrium size is normal. There is mild to moderate aortic regurgitation. There is mild tricuspid regurgitation.
== END 2017-03-09 19:50 | disposition home or self-care (01) ==
LOC: C.ER 14:54 → C.9E 17:06 → C.5S 22:15
PROVIDERS: ADMIT Internal Medicine; ATTEND Internal Medicine
DX: C78.02 Secondary malignant neoplasm of left lung (principal); D64.9 Anemia, unspecified; E11.22 Type 2 diabetes mellitus with diabetic chronic kidney disease; E78.00 Pure hypercholesterolemia, unspecified; E78.5 Hyperlipidemia, unspecified; I12.9 Hypertensive chronic kidney disease with stage 1 through stage 4 chronic kidney disease, or unspecified chronic kidney disease; M17.0 Bilateral primary osteoarthritis of knee; I25.10 Atherosclerotic heart disease of native coronary artery without angina pectoris; N18.9 Chronic kidney disease, unspecified; Z85.528 Personal history of other malignant neoplasm of kidney; Z87.891 Personal history of nicotine dependence; Z90.5 Acquired absence of kidney; Z95.5 Presence of coronary angioplasty implant and graft
CPT/HCPCS: 36415; 71020; 71275; 74020; 78452; 80053; 80061; 81001; 82607; 82728; 82746; 82948; 83036; 83540; 83550; 83690; 83880; 84443; 84484; 85025; 93005; 93017; 93306; 99285; A9502; G0378; J1644; J2785; Q9967

== ENCOUNTER 2017-08-08 16:33 | Emergency (ER) | payer MEDICARE ==
[2017-08-08 16:34] VITALS: BMI 31.6
--- NOTE | 2017-08-08 17:48 | C.PDOC ---
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 Patient was recently admitted at [facility] for 26 days and discharged 4 days ago. He saw Dr. Fajardo for checkeup today and noted diffuse rash to body due to chemo meds. Patient denies any fever, chills, throat swelling, mouth swelling or difficulty breathing. No other medical complaints. PMD: Dr. Fajardo Time Seen by Provider: 08/08/17 17:41 Chief Complaint (Nursing): Chest Pain History Per: Patient History/Exam Limitations: no limitations Onset/Duration Of Symptoms: Days Current Symptoms Are (Timing): Still Present Past Medical History Reviewed: Historical Data, Nursing Documentation, Vital Signs Vital Signs: Last Vital Signs Temp 98 F 08/08/17 21:14 Pulse 78 08/08/17 21:14 Resp 20 08/08/17 21:14 BP 122/75 08/08/17 21:14 Pulse Ox 98 08/08/17 21:14 - Medical History PMH: Anemia, Anxiety, Arthritis, Depression, Diabetes, HTN, Hypercholesterolemia , Pneumonia, Chronic Kidney Disease Surgical History: Coronary Stent (2007), Endoscopy, Hernia Repair () Family History: States: No Known Family Hx - Social History Hx Tobacco Use: Yes (Former smoker 2-3 cigaretes per day, quit 13 years ago) Hx Alcohol Use: No (long time ago) Hx Substance Use: No - Immunization History Hx Tetanus Toxoid Vaccination: No Hx Influenza Vaccination: Yes Hx Pneumococcal Vaccination: No Review Of Systems Except As Marked, All Systems Reviewed And Found Negative. Constitutional: Negative for: Fever, Chills Eyes: Negative for: Pain, Vision Change ENT: Negative for: Ear Pain, Ear Discharge, Nose Pain Cardiovascular: Positive for: Chest Pain. Negative for: Palpitations, Orthopnea , Paroxysmal Noc. Dyspnea Respiratory: Negative for: Cough, Shortness of Breath, Hemoptysis Gastrointestinal: Negative for: Nausea, Vomiting, Abdominal Pain Genitourinary: Negative for: Dysuria, Frequency, Incontinence Musculoskeletal: Negative for: Neck Pain, Shoulder Pain, Arm Pain Skin: Positive for: Rash Neurological: Negative for: Weakness, Numbness, Incoordination, Change in Speech Psych: Negative for: Anxiety, Depression Physical Exam - Physical Exam Appears: Non-toxic Skin: Warm, Dry, Rash (diffuse rash noted to entire body) Head: Atraumatic, Normacephalic Eye(s): bilateral: Normal Inspection, PERRL, EOMI Ear(s): Bilateral: Normal Nose: Normal Oral Mucosa: Moist, Dry Tongue: Normal Appearing Lips: Normal Appearing Teeth: Normal Dentition Gingiva: Normal Appearing Throat: Normal Neck: Normal ROM, Supple Chest: Symmetrical Cardiovascular: Rhythm Regular Respiratory: Decreased Breath Sounds (left base) Gastrointestinal/Abdominal: Soft, No Tenderness Back: Normal Inspection Male Genital: Normal Inspection Extremity: Normal ROM Extremity: Bilateral: Atraumatic, No Pedal Edema, Normal Color And Temperature, Normal ROM Neurological/Psych: Oriented x3 ED Course And Treatment - Laboratory Results Result Diagrams: 08/08/17 18:57 08/08/17 18:57 Medical Decision Making Medical Decision Making: Impression: Chest pain, drug rash Plan: -- Labs -- IV Fluids -- EKG -- CXR Time: 2054 Labs reviewed and patient has normal white count, normal hgb. + Hyponatremia at 127 CXR reviewed and shows questionable mass left lower lung Time: [address] Fajardo who states patient left [facility] 2 days ago, got chemo and radiation. Patient to be admitted under Dr. Fajardo CT Chest w/ contrast ordered. the patient and family decline admission to the hospital and wish to leave the Emergency Department. This action is against my medical advice to the patient and the decision was made with informed refusal. The patient was told that admission is necessary and a full explanation of the rationale was given. The risks of leaving were explained to the patient and the family and include, but are not limited to, worsening of known or currently unknown conditions, permanent disability and from undiagnosed or untreated conditions. The patient has the capacity to make this informed decision and understands the clinical situation and my explanation of the risks of leaving. The patient voluntarily accepts these risks and a signed AMA form documenting our conversation was The patient was given the opportunity to ask questions and reconsider. The patient was encouraged to return to the Emergency Department at any time for further care. ama Disposition Counseled Patient/Family Regarding: Diagnosis, Need For Followup - Disposition Disposition: AGAINST MEDICAL ADVICE Disposition Time: 21:34 Condition: GOOD Forms: [facility] (Bulgarian) - Clinical Impression Clinical Impression: Chest discomfort - Scribe Statement The provider has reviewed the documentation as recorded by the Scribe (Pilar Clark) Provider Attestation: All medical record entries made by the Scribe were at my direction and personally dictated by me. I have reviewed the chart and agree that the record accurately reflects my personal performance of the history, physical exam, medical decision making, and the department course for this patient. I have also personally directed, reviewed, and agree with the discharge instructions and disposition.
[2017-08-08 19:00] LABS: BASO # 0.1 K/uL (0.0-0.2); BASO % 1.1 % (0.0-2.0); EOS % 0.5 % (0.0-4.0); HEMOGLOBIN 12.7 g/dL (12.0-18.0); LYMPH # 2.8 K/uL (1.0-4.3); LYMPH % 48.9 % (20.0-40.0); MEAN CELL VOLUME 80.5 fL (80.0-94.0); MEAN CORPUSCULAR HEMOGLOBIN 26.6 pg (27.0-31.0); MEAN CORPUSCULAR HGB CONC 33.1 g/dL (33.0-37.0); MEAN PLATELET VOLUME 7.3 fL (7.2-11.7); MONO # 0.2 K/uL (0.0-0.8); MONO % 2.7 % (0.0-10.0); NEUT # 2.7 K/uL (1.8-7.0); NEUT % 46.8 % (50.0-75.0); NRBC % 0.6 % (0.0-2.0); RBC 4.76 Mil/uL (4.40-5.90); RED CELL DISTRIBUTION WIDTH 20.6 % (11.5-14.5); WHITE BLOOD COUNT 5.7 K/uL (4.8-10.8)
[2017-08-08 19:06] LABS: SQUAMOUS EPITHIAL < 1 /hpf (0-5); URINE BILIRUBIN NEGATIVE (NEGATIVE); URINE BLOOD NEGATIVE (NEGATIVE); URINE CLARITY Clear (Clear); URINE COLOR Yellow (YELLOW); URINE GLUCOSE (UA) 1+ mg/dL (Normal); URINE LEUKOCYTE ESTERASE NEG Leu/uL (Negative); URINE PROTEIN NEGATIVE (NEGATIVE)
[2017-08-08 19:12] LABS: ALB/GLOB RATIO 0.7 (1.0-2.1); ALBUMIN 2.4 g/dL (3.5-5.0); ALT/SGPT 121 U/L (21-72); AST/SGOT 68 U/L (17-59); BLOOD UREA NITROGEN 34 mg/dL (9-20); GFR AFRICAN-AMERICAN > 60; GFR NON-AFRICAN AMERICAN > 60
[2017-08-08 19:21] LABS: B-TYPE NATRIURETIC PEPTIDE 362 pg/mL (0-900)
[2017-08-08 21:17] VITALS: BP 122/75; PULSE 78; RESP 20; TEMP 98; O2SAT 98
[2017-08-08] MEDS ORDERED: Iodixanol 320 MG/ML 100 ML BOTTLE IV ONE (21:27)
--- NOTE | 2017-08-09 11:09 | RAD ---
HISTORY: COMPARISON: CTA chest from 03/08/2017. TECHNIQUE: Chest PA and lateral FINDINGS: LINES AND TUBES: None. LUNG AND PLEURA: The right lung is well inflated and clear. There is redemonstration of masslike opacity in the left mid lung. Also noted is a small left pleural effusion. HEART AND MEDIASTINUM: The heart is not enlarged. There is unfolding of the aorta and atherosclerotic aortic arch calcifications. The hilar and mediastinal contours are within normal limits. SKELETAL STRUCTURES: Stable. VISUALIZED UPPER ABDOMEN: Normal. OTHER FINDINGS: None. IMPRESSION: Redemonstration of masslike opacity in the left mid lung. New small left pleural effusion.
--- NOTE | 2017-08-09 12:14 | CARD ---
APPROVED REPORT EKG Measurement Heart [id number] <Conclusion> Normal sinus rhythm Low voltage QRS Borderline ECG
== END 2017-08-08 21:31 | disposition left against medical advice (07) ==
LOC: C.ER 16:33 → UNDOADMIN 21:12 → C.9E 21:12 → UNDODISIN 21:30 → C.ER 21:31
DX: R07.89 Other chest pain (principal)

== ENCOUNTER 2018-06-10 06:16 | Emergency (ER) | payer MEDICARE ==
[2018-06-10 06:18] VITALS: BMI 31.6
[2018-06-10 06:44] VITALS: RESP 20; TEMP 98.9
[2018-06-10] MEDS ORDERED: Magnesium Citrate Oral SOL (300 ml) PO ONE (08:15)
[2018-06-10] MEDS ORDERED: Magnesium Citrate Oral SOL (300 ml) ONE (08:41)
[2018-06-10 09:41] VITALS: BP 111/76; PULSE 76; O2SAT 100
--- NOTE | 2018-06-10 09:48 | C.PDOC ---
History Of Present Illness 77 year old male with a PMHx of HPT, diabetes, and chronic constipation presents for evaluation of constipation and rectal discomfort for 4 days. The patient reports he is unable to move his bowels. Denies fever, chills, nausea, vomiting, headache, chest pain, shortness of breath, and any other associated symptoms. Time Seen by Provider: 06/10/18 07:22 Chief Complaint (Nursing): GI Problem History Per: Patient History/Exam Limitations: no limitations Onset/Duration Of Symptoms: Days (x4) Current Symptoms Are (Timing): Still Present Associated Symptoms: Constipation. denies: Fever, Chills, Nausea, Vomiting, Chest Pain Recent travel outside of the [place]: No Past Medical History Reviewed: Historical Data, Nursing Documentation, Vital Signs Vital Signs: Last Vital Signs Temp 98.9 F 06/10/18 06:37 Pulse 76 06/10/18 09:40 Resp 20 06/10/18 09:40 BP 111/76 06/10/18 09:40 Pulse Ox 100 06/10/18 09:40 - Medical History PMH: Anemia, Anxiety, Arthritis, Depression, Diabetes, HTN, Hypercholesterolemia, Pneumonia, Chronic Kidney Disease Surgical History: Coronary Stent (2007), Endoscopy, Hernia Repair (umbilical) Family History: States: Unknown Family Hx - Social History Hx Tobacco Use: Yes (Former smoker 2-3 cigaretes per day, quit 13 years ago) Hx Alcohol Use: No (long time ago) Hx Substance Use: No - Immunization History Hx Tetanus Toxoid Vaccination: No Hx Influenza Vaccination: Yes Hx Pneumococcal Vaccination: No Review Of Systems Except As Marked, All Systems Reviewed And Found Negative. Constitutional: Negative for: Fever, Chills Cardiovascular: Negative for: Chest Pain Respiratory: Negative for: Shortness of Breath Gastrointestinal: Positive for: Constipation, Rectal Pain (discomfort. ). Negative for: Nausea, Vomiting Neurological: Negative for: Headache Physical Exam - Physical Exam Appears: Non-toxic, No Acute Distress Skin: Warm, Dry Head: Atraumatic, Normacephalic Eye(s): bilateral: Normal Inspection Oral Mucosa: Moist Neck: Normal ROM, Supple Chest: Symmetrical, No Deformity Cardiovascular: Rhythm Regular, No Murmur Respiratory: Normal Breath Sounds, No Rales, No Rhonchi, No Wheezing Gastrointestinal/Abdominal: Normal Exam, Soft, No Tenderness, No Distention, Other (obese abdomen. ) Extremity: Bilateral: Atraumatic, Normal Color And Temperature, Normal ROM Neurological/Psych: Oriented x3, Normal Speech, Normal Cognition ED Course And Treatment O2 Sat by Pulse Oximetry: 100 (RA) Pulse Ox Interpretation: Normal - Other Rad Obstructive series X-Ray: Interpreted by Me, Viewed By Me Interpretation: shows a lot of retained stool. Medical Decision Making Medical Decision Making: Initial plan: -Obstructive series -Citrate of Mag -Fleet Enema Progress/Update: Re-evaluation: Pt is currently moving bowels, states feeling better. Patient stable for discharge home. Prescribed Benfiber and Miralax. Advised to follow up with PMD within 2-3 days or return to the ED if symptoms worsen. Disposition Counseled Patient/Family Regarding: Studies Performed, Diagnosis, Need For Followup, Rx Given - Disposition Referrals: Jarad Jasso [Staff Provider] - Disposition: HOME/ ROUTINE Disposition Time: 09:46 Condition: STABLE Prescriptions: Polyethylene Glycol 3350 [Miralax] 1 packet PO DAILY #30 powd.pack Wheat Dextrin [Benefiber] 1 each PO DAILY #30 powd.pack Instructions: Constipation, Adult (DC) Forms: [facility] (German), Gen Discharge Inst German - POA Present On Arrival: None - Clinical Impression Clinical Impression: Constipation - Scribe Statement The provider has reviewed the documentation as recorded by the Scribe (Yanni Holder) All medical record entries made by the Scribe were at my direction and personally dictated by me. I have reviewed the chart and agree that the record accurately reflects my personal performance of the history, physical exam, medical decision making, and the department course for this patient. I have also personally directed, reviewed, and agree with the discharge instructions and disposition.
--- NOTE | 2018-06-10 16:50 | RAD ---
Date of service: 06/10/2018 PROCEDURE: Radiographs of the chest and abdomen (obstructive series) HISTORY: constipation COMPARISON: No prior. TECHNIQUE: AP radiograph of the chest, with upright and supine radiographs of the abdomen. FINDINGS: CHEST: Lungs: Ill-defined left perihilar opacity. Possible pneumonia. Follow-up advised. Cardiovascular: Normal size heart. No pulmonary vascular congestion. No aortic atherosclerotic calcification present Pleura: No pleural fluid. No pneumothorax. Other findings: None. ABDOMEN AND PELVIS: Bowel: Unremarkable bowel gas pattern. No evidence of mechanical obstruction. Free air: None. Bones: Unremarkable. Other findings: None. IMPRESSION: Left perihilar opacity. Possible pneumonia. Follow-up advised. No evidence of bowel obstruction or significant retained feces.
== END 2018-06-10 10:06 | disposition home or self-care (01) ==
LOC: C.ER 06:16
DX: K59.00 Constipation, unspecified (principal)